=== PATIENT | female | born 1940 | race Caucasian/White ===

== ENCOUNTER → 2017-01-01 | Outpatient (CLI) | payer OTHER ==
[~2017-01-01] MED LIST: ALBUTEROL 0.5ML INH; ALBUTEROL MININEB NEB; ALBUTEROL17 GM INH; ALLEGRA ALLERG180 MG PO; ALPRAZOLAM PO; ARIMIDEX1 MG PO; ASPIRIN81 M2 PO; AUGMENTIN PO; AZELASTINE137 MCG/0.; CALCIUM 500 + D1 TAB PO; CALCIUM 600 + D1 TA1 PO; CENTRUM PO; CIPRO PO; CLARITIN10 M2 PO; CLONAZEPAM0.5 MG PO; CYMBALTA PO; EFFEXOR XR150 MG PO; FENOFIBRATE145 M1 PO; FOSAMAX PO; GABAPENTIN300 M2 PO; HYDROCODON-ACE1 EAC7 PO; KCL PO; LASIX20 MG PO; LEVAQUIN PO; LINZESS290 MCG PO; LIPITOR PO; LISINOPRIL20 MG PO; METOPROLOL SUCC50 MG PO; MIRALAX17 GM DOB; MONTELUKAST SOD10 MG PO; MYSOLINE50 MG PO; NASONEX17 GM; NORCO 5/325 TAB1 TAB PO; POTASSIUM99 M1 PO; PREDNISONE PO; PREVACID PO; PREVACID15 M1 PO; PRISTIQ100 MG PO; PROBIOTIC1 EAC1 PO; PROTONIX PO; PROVENTIL INH0.5 ML HHN; REMERON15 MG PO; ROBITUSSIN-DM120 ML PO; SYMBICORT INH; TOPROL XL PO; VIBRAMYCIN100 M1 PO; VITAMIN B12-FO1 EACH PO; VITAMIN B122500 MCG; VITAMIN C PO; VITAMIN C100 MG PO; VITAMIN D5000 UNIT PO; WELLBUTRIN100 MG PO; ZITHROMAX PO; ZOCOR20 MG PO
== END | disposition home or self-care (01) ==
LOC: CSSDAY 10:08
DX: M81.0 Age-related osteoporosis without current pathological fracture (principal); Z79.899 Other long term (current) drug therapy
CPT/HCPCS: 36415; 82310; 96372; J0897